=== PATIENT | female | born 1965 ===

== ENCOUNTER 2018-05-22 17:51 | Emergency (ER) | payer OTHER ==
--- NOTE | 2018-05-22 19:00 | ED PDOC ---
Arrival/HPI - General Chief Complaint: Headache Time Seen by Provider: 05/22/18 18:02 Historian: Patient EM Caveat: Acuity of Condition - History of Present Illness Narrative History of Present Illness (Text): 05/22/18 18:57 52 year old female w/ hx of tubal ligation p/w headache. Headache is not worst of life, not sudden onset, without FND, not thunderclap like. CARTER gradually worsened. No falls or trauma. x2d. Pt has been taking advil for the pain with some relief of the pain. No fever, chills or night sweats. She notes the headache comes from her neck and goes into her head. No cp or sob. No other complaints Time/Duration: Other (2d) Past Medical History - Travel History Have you recently traveled outside [place] w/in the past 3 mons?: No - Infectious Disease Hx of Infectious Diseases: None - Reproductive Menopause: Yes - Cardiac Hx Cardiac Disorders: No - Pulmonary Hx Respiratory Disorders: No - Neurological Hx Neurological Disorder: No - HEENT Hx HEENT Disorder: No - Renal Hx Renal Disorder: No - Endocrine/Metabolic Hx Endocrine Disorders: No - Hematological/Oncological Hx Blood Disorders: No - Integumentary Hx Dermatological Disorder: No - Musculoskeletal/Rheumatological Hx Musculoskeletal Disorders: No - Psychiatric Hx Substance Use: No - Surgical History Hx Tubal Ligation: Yes - Anesthesia Hx Anesthesia: Yes Hx Anesthesia Reactions: No Family/Social History Family/Social History: No Known Family HX Smoking Status: Unknown If Ever Smoked Hx Alcohol Use: Yes Frequency of alcohol use: Socially Hx Substance Use: No Allergies/Home Meds Allergies/Adverse Reactions: Allergies No Known Allergies Allergy (Verified 05/22/18 18:03) Home Medications: Home Meds Medication Instructions Recorded Confirmed No Known Home Med 05/22/18 05/22/18 Review of Systems - Review of Systems Constitutional: Normal Eyes: Normal ENT: Normal Respiratory: Normal Cardiovascular: Normal Gastrointestinal: Normal Genitourinary Female: Normal Musculoskeletal: Neck Pain Skin: Normal Neurological: Headache Endocrine: Normal Hemo/Lymphatic: Normal Psychiatric: Normal Physical Exam Vital Signs Temp Pulse Resp BP Pulse Ox 05/22/18 19:19 98.1 F 73 16 135/95 H 100 05/22/18 17:59 98.7 F 76 18 138/90 98 Temperature: Afebrile Blood Pressure: Normal Pulse: Regular Respiratory Rate: Normal Appearance: Positive for: Well-Appearing, Non-Toxic, Comfortable Pain Distress: None Mental Status: Positive for: Alert and Oriented X 3 - Systems Exam Head: Present: Atraumatic, Normocephalic Pupils: Present: PERRL Extroacular Muscles: Present: EOMI Conjunctiva: Present: Normal Mouth: Present: Moist Mucous Membranes Neck: Present: Normal Range of Motion. No: Meningeal Signs, MIDLINE TENDERNESS Respiratory/Chest: Present: Clear to Auscultation, Good Air Exchange. No: Respiratory Distress, Accessory Muscle Use Cardiovascular: Present: Regular Rate and Rhythm, Normal S1, S2. No: Murmurs Abdomen: No: Tenderness, Distention, Peritoneal Signs Back: Present: Normal Inspection Upper Extremity: Present: Normal Inspection. No: Cyanosis, Edema Lower Extremity: Present: Normal Inspection. No: Edema Neurological: Present: GCS=15, CN II-XII Intact, Speech Normal, Normal Sensory Function, Normal Cerebellar Funct, Norm Deep Tendon Reflexes, Gait Normal Skin: Present: Warm, Dry, Normal Color. No: Rashes Psychiatric: Present: Alert, Oriented x 3, Normal Insight, Normal Concentration Medical Decision Making ED Course and Treatment: 05/22/18 19:02 52 yr old female p/w headache, not worst of life not sudden in onset. No fever, no meningieal signs. will ct and xr. 05/22/2018 19:[address] IMPRESSION: No acute intracranial findings. Dictator: Isaias Stallings MD 05/22/2018 19:[address] IMPRESSION: No acute findings. Dictator: Isaias Stallings MD 05/22/18 21:49 CT unremarkable, labs unremarkable. CARTER resolved. Clear for d/c home with followup. Neuro exam remains stable - Lab Interpretations Lab Results: 05/22/18 19:20 05/22/18 19:20 Lab Results 05/22/18 19:20: Sodium 143, Potassium 4.5, Chloride 105, Carbon Dioxide 26, Anion Gap 16, BUN 10, Creatinine 0.6 L, Est GFR ( Amer) > 60, Est GFR ( Non-Af Amer) > 60, Random Glucose 89, Calcium 9.1, Magnesium 2.1, Total Bilirubin 0.9, AST 33, ALT 52, Alkaline Phosphatase 84, Total Protein 7.7, Albumin 4.1, Globulin 3.6, Albumin/Globulin Ratio 1.1 05/22/18 19:20: WBC 10.0, RBC 4.07, Hgb 12.5, Hct 36.5, MCV 89.7, MCH 30.7, MCHC 34.2, RDW 14.3, Plt Count 290, MPV 11.1 H, Gran % 61.6, Lymph % (Auto) 28.1 , Cuming % (Auto) 8.4 H, Eos % (Auto) 1.3 L, Baso % (Auto) 0.6, Gran # 6.15, Lymph # (Auto) 2.8, Cuming # (Auto) 0.8 H, Eos # (Auto) 0.1, Baso # (Auto) 0.06 - RAD Interpretation Radiology Orders: 05/22/18 18:54 CERVICAL SPINE W/O CONTRAST [CT] Stat HEAD W/O CONTRAST [CT] Stat - Medication Orders Current Medication Orders: Discontinued Medications Ketorolac Tromethamine (Toradol) 30 mg IVP STAT STA Stop: 05/22/18 20:06 Last Admin: 05/22/18 20:22 Dose: 30 mg MAR Pain Assessment Document 05/22/18 20:22 AD (Rec: 05/22/18 20:23 [facility] Pain Reassessment Is this a pain reassessment? No Presence of Pain Presence of Pain Yes Pain Scale Used Pain Scale Used Numeric Location Pain Location Body Psych [employer] Specialist Description Intensity of Pain at present 9 IVP Administration Document 05/22/18 20:22 AD (Rec: 05/22/18 20:23 AD [email or web address]) Charges for Administration # of IVP Administrations 1 Metoclopramide HCl (Reglan) 10 mg IVP STAT STA Stop: 05/22/18 18:55 Last Admin: 05/22/18 19:58 Dose: 10 mg IVP Administration Document 05/22/18 19:58 (Rec: 05/22/18 19:58 [email or web address] Charges for Administration # of IVP Administrations 1 Disposition/Present on Arrival - Present on Arrival Any Indicators Present on Arrival: No History of DVT/PE: No History of Uncontrolled Diabetes: No Urinary Catheter: No History of Decub. Ulcer: No History Surgical Site Infection Following: None - Disposition Have Diagnosis and Disposition been Completed?: Yes Diagnosis: Head trauma Disposition: HOME/ ROUTINE Disposition Time: 20:34 Patient Problems: Current Active Problems Problem Status Onset Head trauma Acute Condition: GOOD Discharge Instructions (ExitCare): Migraine Headache (DC), Ibuprofen, Migraine Headaches in Adults Additional Instructions: MEDINA NORWOOD, thank you for letting us take care of you today. Your provider was Santi Mckeon and you were treated for HEAD/NECK PAIN. The emergency medical care you received today was directed at your acute symptoms. If you were prescribed any medication, please fill it and take as directed. It may take several days for your symptoms to resolve. Return to the Emergency Department if your symptoms worsen, do not improve, or if you have any other problems. Please contact your doctor or call one of the physicians/clinics you have been referred to that are listed on the Patient Visit Information form that is included in your discharge packet. Bring any paperwork you were given at discharge with you along with any medications you are taking to your follow up visit. Our treatment cannot replace ongoing medical care by a primary care provider outside of the emergency department. Thank you for allowing the [facility] team to be part of your care today. If you had an X-Ray or CT scan: A Radiologist will review the ED reading if any change in treatment is needed we will contact you. If you had a blood, urine, or wound culture: It will take several days for the results, if any change in treatment is needed we will contact you. If you had an STI test: It will take 48 hours for the results. Please call after 1 week if you have not heard back. Referrals: PCP,NO [Primary Care Provider] - Follow up with primary Dayana Cali MD [Staff Provider] - Follow up with primary Matilda Garcia MD [Medical Doctor] - Follow up with primary Forms: [employer] (Paraguayan)
[2018-05-22 19:20] VITALS: TEMP 98.1; O2SAT 100
[2018-05-22 19:40] LABS: ALB/GLOB RATIO 1.1 (1.1-1.8); ALBUMIN 4.1 g/dL (3.0-4.8); ALT/SGPT 52 U/L (7-56); AST/SGOT 33 U/L (14-36); BLOOD UREA NITROGEN 10 mg/dL (7-21); CALCIUM 9.1 mg/dL (8.4-10.5); GFR AFRICAN-AMERICAN > 60; GFR NON-AFRICAN AMERICAN > 60
[2018-05-22 20:10] LABS: HEMOGLOBIN 12.5 g/dL (12.0-16.0); MEAN CELL VOLUME 89.7 fl (80.0-105.0); MEAN CORPUSCULAR HEMOGLOBIN 30.7 pg (25.0-35.0); MEAN CORPUSCULAR HGB CONC 34.2 g/dl (31.0-37.0); MEAN PLATELET VOLUME 11.1 fl (7.0-11.0); RBC 4.07 10^6/uL (3.5-6.1); RED CELL DISTRIBUTION WIDTH 14.3 % (11.5-14.5)
[2018-05-22 20:11] LABS: BASO # 0.06 K/mm3 (0.0-2.0); BASO % 0.6 % (0.0-3.0); EOS # 0.1 (0.0-0.7); EOS % 1.3 % (1.5-5.0); GRAN # 6.15 (1.4-6.5); GRAN % 61.6 % (50.0-68.0); LYMPH # 2.8 (1.2-3.4); LYMPH % 28.1 % (22.0-35.0); MONO # 0.8 (0.1-0.6); MONO % 8.4 % (1.0-6.0)
[2018-05-22 22:47] VITALS: BP 130/87; PULSE 75; RESP 18
--- NOTE | 2018-05-23 12:17 | CT ---
Date of service: 05/22/2018 PROCEDURE: CT HEAD WITHOUT CONTRAST. HISTORY: headache COMPARISON: None available. TECHNIQUE: Axial computed tomography images were obtained through the head/brain without intravenous contrast. Radiation dose: Total exam DLP = 1215.51 mGy-cm. This CT exam was performed using one or more of the following dose reduction techniques: Automated exposure control, adjustment of the mA and/or kV according to patient size, and/or use of iterative reconstruction technique. FINDINGS: HEMORRHAGE: No intracranial hemorrhage. BRAIN: No mass effect or edema. No atrophy or chronic microvascular ischemic changes. VENTRICLES: Unremarkable. No hydrocephalus. CALVARIUM: Unremarkable. PARANASAL SINUSES: Unremarkable as visualized. No significant inflammatory changes. MASTOID AIR CELLS: Unremarkable as visualized. No inflammatory changes. OTHER FINDINGS: None. IMPRESSION: Normal CT of the Head. Preliminary report provided by overnight radiology service.
--- NOTE | 2018-05-23 14:30 | CT ---
Date of service: 05/22/2018 PROCEDURE: CT Cervical Spine without contrast HISTORY: CARTER, neck pain COMPARISON: None available. TECHNIQUE: Axial computed tomography images were obtained of the cervical spine without the use of intravenous contrast. Coronal and sagittal reformatted images were created and reviewed. Radiation dose: Total exam DLP = 470.23 mGy-cm. This CT exam was performed using one or more of the following dose reduction techniques: Automated exposure control, adjustment of the mA and/or kV according to patient size, and/or use of iterative reconstruction technique. FINDINGS: VERTEBRAE: No acute compression fractures no retropulsed fragments. . Vertebral bodies exhibit relatively normal stature. Minimal kyphotic angulation deformity seen at the C3-C4 level of with anterior disc space narrowing. There is the straightening of the normal cervical lordosis above and below this level. Vertebral bodies and facets otherwise normally aligned DISCS/SPINAL CANAL/NEURAL FORAMINA: Multilevel degenerative spondylosis. . There is an amorphous on elliptical shaped calcification within the prevertebral soft tissues abutting inferior margin anterior arch C1 and anterior to the C2 vertebral body centrally and to the right as it extends inferiorly to near the C2-C3 level. This is of uncertain etiology though could be post traumatic or post infectious/ inflammatory in origin appear clinical correlation with history recommended. At the C3-C4 level, there is disc space narrowing more so along the anterior disc margin. No disc herniation nor significant disc bulge of small irregular osteophytic ridge contiguous with minimally overgrown uncovertebral joints. Exit foramina appear adequate. At the C5-C6 level, there is also mild disc space narrowing. Small irregular osteophytic ridge disc complex contiguous with slightly overgrown uncovertebral joints. . The central canal is minimally narrowed at this level. PARASPINAL SOFT TISSUES: Unremarkable. OTHER FINDINGS: None. IMPRESSION: Unremarkable CT of the cervical spine. No acute fractures. Mild kyphotic angulation deformity centered at the C3-C4 level. Mild multilevel degenerative spondylosis. Note made of an nonspecific somewhat elliptical shaped prevertebral soft tissue calcification anterior to the C2 vertebral body and also abutting the inferior anterior margin of the C1 anterior arch nonspecific. Rule out old post inflammatory or infectious etiology.
== END 2018-05-22 21:56 | disposition home or self-care (01) ==
LOC: ED 17:51
DX: S09.90XA Unspecified injury of head, initial encounter (principal); X58.XXXA Exposure to other specified factors, initial encounter
CPT/HCPCS: 70450; 72125; 80053; 83735; 85025; 96374; 96375; 99285; J1885; J2765